=== PATIENT | female | born 1940 ===

== ENCOUNTER 2023-09-16 10:23 | Outpatient (CLI) | payer OTHER | END 2023-09-16 10:37 | disposition home or self-care (01) | LOC: RX STUDY 10:23 | PROVIDERS: ATTEND Surgery | DX: K57.20 Diverticulitis of large intestine with perforation and abscess without bleeding (principal); K63.1 Perforation of intestine (nontraumatic); Z93.3 Colostomy status; K66.0 Peritoneal adhesions (postprocedural) (postinfection); K56.5 Intestinal adhesions [bands] with obstruction (postinfection) ==